=== PATIENT | female | born 1970 | race Caucasian/White ===

== ENCOUNTER 2017-04-15 06:38 | Inpatient (IN) | payer BC ==
[2017-04-15] MEDS ORDERED: ONDANSETRON 4 MG/2 ML VIAL IVP ONE (06:50)
[2017-04-15] MEDS ORDERED: Pantoprazole Inj 40 MG in Normal Saline Flush 10 ML IVP ONE (06:50)
[2017-04-15] MEDS ORDERED: NORMAL SALINE 10 ML SYRINGE FLUSH IVP PRN ×6 (06:50→12:12)
[2017-04-15] MEDS ORDERED: Sodium Chloride 0.9% 1,000 ML PRIMARY IV ONE (06:50)
--- NOTE | 2017-04-15 07:07 | PDOC ---
Abdomen/Flank HPI - General Chief Complaint: Abdomen Pain Stated Complaint: MID ABDOMINAL PAIN SINCE LAST NIGHT Date Seen by Provider: 04/15/17 Time Seen by Provider: 06:45 Source: POSITIVE: Patient Exam Limitations: POSITIVE: No limitations Nurse's Notes Reviewed & Considered: Yes - History of Present Illness Initial Comments: The patient is a 46-year-old female who presents to the emergency department with abdominal pain and cramping. She states that sometime in the middle of the night she developed intermittent episodes of upper abdominal pain and cramping area she states that this last for several seconds and occurs in a series of cramps and then resolves periodically. She has associated nausea and one episode of dry heaves. She also has generalized weakness and chills. She does have a history of previous lap band procedure in 2007 with revision in 2013. She states that her current pain does not feel similar to problems she has had with her lap band in the past. She denies any recent diarrhea or constipation. She states she did have a normal bowel movement earlier this morning. She denies urinary symptoms. She has no chest pain, cough or shortness of breath. She has had no prior abdominal surgeries other than the lap band procedures. - Patient Home Medications Home Medications: Home Medications Ethynodiol D-Ethinyl Estradiol [Zovia 1-35e] 1 each PO DAILY 10/25/11 Naproxen Sodium [Aleve] 220 mg PO PRN PRN 10/26/11 - Patient Allergies Allergies/Adverse Reactions: Allergies Allergy/AdvReac Type Severity Reaction Status Date / Time Penicillins Allergy Intermediate HIVES Verified 04/15/17 06:44 Past Medical History - heen HEENT History: Denies History Cardiovascular History: Denies History Respiratory History: Denies History Gastrointestinal History: Denies History Genitourinary History: Denies History Endocrine History: Denies History Musculoskeletal History: Denies History Neurological History: Denies History Blood Disorders: Denies History Psychiatric History: Denies History Female Reproductive History: Denies History LMP: currently Obstetrical History: Denies History In Past Year Been Physically Harmed or Verbally Threatened: No History of MDRO: No Tobacco Use: Never Smoker Alcohol Use: Occasionally Substance Use Type: None Previous Surgical History: Yes Type / Date of Surgery: lap band, R thumb, R wrist Anesthesia Reactions: No Malignant Hyperthermia: No Significant Family History: No pertinent family hx Past Medical History Reviewed: Reviewed - No Changes ROS - Limitations ROS Limitations: No Limitations Constitution: REPORTS: Chills Cardiovascular: REPORTS: Denies Cardiac Symptoms Respiratory: REPORTS: Denies Resp Symptoms Neurological: REPORTS: Denies Neuro Symptoms Gastrointestinal: REPORTS: Abdominal Pain, Nausea. DENIES: Diarrhea, Black Stools, Bloody Stools, Constipation Endocrine: REPORTS: Fatigue Musculoskeletal: REPORTS: Denies MS Symptoms Genitourinary: REPORTS: Denies Symptoms, Other (Currently on her menses) Eyes: REPORTS: Denies Symptoms ENT: REPORTS: Denies Symptoms Skin: DENIES: Rash Abdominal/Flank Pain PE - General Appearance General Appearance: POSITIVE: Alert, Cooperative, No Acute Distress - HEENT HEENT: POSITIVE: Head Inspection Nml, Eyes Inspection Nml, Ears Inspection Nml, Pharynx Inspect. Nml - Neck Neck: POSITIVE: Normal Inspection. NEGATIVE: Lymphadenopathy - Respiratory Respiratory: POSITIVE: No Respiratory Distress, Breath Sounds Normal - Cardiovascular Cardiovascular: POSITIVE: Regular Rate and Rhythm, Heart Sounds Normal Peripheral Pulses: Dorsalis-pedis (R): 2+, Dorsalis-pedis (L): 2+ - Abdomen Abdomen: Soft: (All Quadrants), No Guarding: (All Quadrants), No Rebound: (All Quadrants), No Distention: (All Quadrants) Additional Abdominal Details: She does have tenderness in the epigastric region without guarding or rebound tenderness, no palpable mass - Back Back: POSITIVE: Normal Inspection. NEGATIVE: CVA Tenderness (R), CVA Tenderness (L) - Skin Skin: POSITIVE: Intact, No Rash - Extremities Extremity: Normal ROM: (All Extremities), Normal Inspection: (All Extremities) - Neurological Neurological: POSITIVE: Oriented X3, lamp wirer Normal As Tested, Motor Normal, Sensation Normal Abdomen Progress - Results Reviewed by me Xrays/CTs/US Reviewed by me: Yes Discussed with Radiologist: Yes Radiology Findings: CT scan of the abdomen and pelvis with IV contrast reveals an appendix that has a mildly enlarged tip concerning for a distal or early appendicitis, she also has some inflammatory change to the distal ileum per radiologist. Lab Results Reviewed: Yes Lab Results:: Laboratory Results 04/15/17 04/15/17 Range/Units 07:07 08:20 WBC 11.79 H (4.8-10.8) 10^3/uL RBC 4.85 (4.20-5.40) 10^6/uL Hgb 14.7 (12.0-16.0) g/dL Hct 43.4 (37.0-47.0) % MCV 89.5 (81-99) FL MCH 30.3 (27-31) PG MCHC 33.9 (33-37) g/dL RDW Std Deviation 42.4 (39-50) fL RDW Coeff of Bernadette 13.1 (11.5-14.5) % Plt Count 300 (140-350) 10*3/uL MPV 8.5 (7.4-12.2) FL Immature Gran % (Auto) 0.1 (0-5) % Neut % (Auto) 86.1 H (50-80) % Lymph % (Auto) 9.2 L (10-50) % [place] % (Auto) 3.5 L (5-15) % Eos % (Auto) 0.8 (0-8) % Baso % (Auto) 0.3 (0-1) % Immature Gran # (Auto) 0.01 10*3/UL Neut # (Auto) 10.16 10*3/UL Lymph # (Auto) 1.08 10*3/uL [place] # (Auto) 0.41 (0.3-0.8) 10*3/UL Eos # (Auto) 0.10 10*3/UL Baso # (Auto) 0.03 10*3/UL WBC Morphology Comment Normal morphology (NORM) Plt Morphology Comment Normal morphology (NORM) RBC Morph Comment Normal morphology (NORM) Sodium 139 (135-145) meq/L Potassium 3.2 L (3.8-5.2) meq/L Chloride 106 (98-112) meq/L Carbon Dioxide 20 L (23-33) meq/L Anion Gap 13 (5-20) BUN 10 (7-22) mg/dL Creatinine 0.8 (0.50-1.20) mg/dL Estimated GFR > 60 (>60 ml/min/1.73m(2)) BUN/Creatinine Ratio 12.50 (6-20) Glucose 125 H (78-110) mg/dL Calculated Osmolality 287.0 (267-292) mOsm/kg Calcium 8.9 (8.7-10.7) mg/dL Total Bilirubin 1.4 H (0.3-1.2) mg/dL AST 23 (8-39) IU/L ALT 54 H (9-52) IU/L Alkaline Phosphatase 64 (38-126) IU/L C-Reactive Protein 1.0 H (0.0-0.9) mg/dL Total Protein 7.2 (6.1-8.0) g/dL Albumin 4.1 (3.5-4.8) g/dL Globulin 3.1 (2.50-4.10) g/dL Albumin/Globulin Ratio 1.30 (1.3-2.0) mg/g Amylase 100 (30-110) U/L Lipase 61 (23-300) IU/L Serum HCG, Qual Negative Ur Collection Type Clean catch urine Urine Color Yellow Urine Clarity Clear (CLEAR) Urine pH 5.5 (5.0-8.5) Ur Specific [place] <=1.005 (1.005-1.030) Urine Protein Negative (NEG) mg/dl Urine Glucose (UA) Negative (NEG) mg/dL Urine Ketones 15 (NEG) Urine Occult Blood Moderate H (NEG) Urine Nitrate Negative (NEG) Urine Bilirubin Negative (NEG) Urine Urobilinogen 0.2 (0.2) EU/dL Ur Leukocyte Esterase Negative (NEG) Urine RBC 2-4 (NONE) /hpf Urine WBC 0-2 (NONE) Ur Squamous Epith Cells Rare (NONE) Ur Renal Epithelial Cell None (NONE) Urine Crystals None Urine Bacteria None (NONE) Urine Casts None (NONE) Urine Mucus None (NONE) Urine Trichomonas None (NONE) Urine Yeast None (NONE) Ur Culture Indicated? Culture not set - Patient's Progress MDM / ED Course: An IV was established and she received a 1 L bolus of normal saline as well as Zofran 4 mg IV and Protonix 40 mg IV. Her abdominal cramping seemed to subside significantly. Her white blood cell count was mildly elevated and a CT of her abdomen and pelvis was ordered. This showed the tip of the appendix to be enlarged concerning for an early or distal appendicitis, she also had inflammatory changes to the distal ileum. These findings were discussed with the patient. Repeat abdominal exam revealed tenderness to be now more located in the right mid abdomen right over the area where her appendix is at. Because of her CT findings and elevated white count a surgical consultation was obtained per Dr. Gay. He evaluated the patient in the emergency room and is making arrangements to take the patient to the OR for appendectomy. - Consult Counseled: POSITIVE: Patient, Family, RE: Lab Results, RE: Radiology Results, RE : DX, RE: Need for F/U Patient Care Time - Estimated PCT Patient Care Time (In Minutes): 35 Vital Signs - Recent Vital Signs Vital Signs: Vital Signs (Last 8 hours) Temp Pulse Resp BP Pulse Ox 04/15/17 06:41 97.0 F 77 18 121/75 99 - VS Reviewed Vital Signs Reviewed: Yes Discharge Clinical Impression: Appendicitis Discharge Disposition: Transferred to OR Condition: Stable
[2017-04-15 07:10] LABS: BASOPHILS # (AUTO) 0.03 10*3/UL; BASOPHILS % (AUTO) 0.3 % (0-1); EOSINOPHILS % (AUTO) 0.8 % (0-8); HEMATOCRIT 43.4 % (37.0-47.0); HEMOGLOBIN 14.7 g/dL (12.0-16.0); LYMPHOCYTES # (AUTO) 1.08 10*3/uL; MEAN CORPUSCULAR HEMOGLOBIN 30.3 PG (27-31); MEAN CORPUSCULAR HGB CONC 33.9 g/dL (33-37); MEAN CORPUSCULAR VOLUME 89.5 FL (81-99); MEAN PLATELET VOLUME 8.5 FL (7.4-12.2); MONOCYTES # (AUTO) 0.41 10*3/UL (0.3-0.8); MONOCYTES % (AUTO) 3.5 % (5-15); NEUTROPHILS # (AUTO) 10.16 10*3/UL; NEUTROPHILS % (AUTO) 86.1 % (50-80); RED BLOOD COUNT 4.85 10^6/uL (4.20-5.40)
[2017-04-15 07:12] LABS: PLATELET MORPHOLOGY COMMENT NORMAL MORPHOLOGY (NORM); RBC MORPHOLOGY COMMENT NORMAL MORPHOLOGY (NORM); WBC MORPHOLOGY COMMENT NORMAL MORPHOLOGY (NORM)
[2017-04-15 07:30] LABS: BLOOD UREA NITROGEN 10 mg/dL (7-22); CALCIUM 8.9 mg/dL (8.7-10.7); EST GLOMERULAR FILTRATION > 60 (>60 ml/min/1.73m(2)); LIPASE 61 IU/L (23-300); SERUM ALBUMIN 4.1 g/dL (3.5-4.8)
[2017-04-15 08:30] LABS: BILIRUBIN,URINE NEGATIVE (NEG); CLARITY,URINE CLEAR (CLEAR); COLOR,URINE YELLOW; GLUCOSE, URINE (UA) NEGATIVE (NEG); NITRATE,URINE NEGATIVE (NEG); OCCULT BLOOD,URINE MODERATE (NEG); PH,URINE 5.5 (5.0-8.5); PROTEIN,URINE NEGATIVE (NEG); UROBILINOGEN,URINE 0.2 EU/dL (0.2)
[2017-04-15 08:35] LABS: SQUAMOUS EPITHELIAL CELL,UR RARE; URINE SAMPLE TYPE CLEAN CATCH URINE; WBC,URINE 0-2
--- NOTE | 2017-04-15 08:48 | DI ---
CT ABD W/CN AND PELVIS W/CN,04/15/2017 7:33 AM: Clinical History: Abdominal pain and elevated white blood cell count. Previous Exam: None at this facility. Findings: Multiple helically acquired CT images are obtained through the abdomen and pelvis following the intra venous administration of Isovue 300, and demonstrates clear lung bases. Mild diffuse fatty infiltration of the liver is noted. The gallbladder, spleen, adrenals, kidneys and pancreas are unremarkable. There is a LAP-BAND involving the gastric fundus. The tip of the appendix is slightly prominent (9 mm). There are inflammatory changes involving the ma jority of the right lower quadrant with thickened loops of terminal ileum and some free fluid in the deep pelvis. Urinary bladder is unremarkable. There are bilateral L5 pars defects with grade 1 anterolisthesis of L5 on S1 with sclerotic changes o f the endplates. The lung bases are clear. Impression: 1. Inflammatory changes and thickening of the distal ileum involving approximately 30 cm of small bow el most consistent with inflammatory bowel disease. 2. Prominence of the tip of the appendix (9 mm) without any inflammatory changes.
[2017-04-15] MEDS ORDERED: ERTAPENEM 1 GM VIAL ONE (09:05)
[2017-04-15] MEDS ORDERED: Sodium Chloride 0.9% 100 ML IV ONE (09:05)
[2017-04-15] MEDS ORDERED: Ertapenem Inj 1 GM in Sodium Chloride 0.9% 100 ML IV ONE (09:09)
--- NOTE | 2017-04-15 09:10 | PDOC ---
History and Physical - History of Present Illness Date and Time of Service: 03/15/2017 at 9 AM Chief Complaint: Abdominal pain History of Present Illness: This is a 46-year-old female who's developed crampy abdominal pain. The pain is a midepigastric region and has shifted the right lower quadrant. She denies fever or chills. She denies any diarrhea. She denies hematochezia hematemesis or melena. Patient did have a lap band before. She's had complications that she states that this is nothing like that. Patient's white count is slightly elevated above 11,000. She had a CT scan of the abdomen which shows a 9 mm thickened distal appendix. She also has some inflammatory changes of the terminal ileum. The radiologist is highly concerned that this may be a carcinoid. Past Medical History Surgical History: Lap banding Tobacco Use: Never Smoker Substance Use Type: None Medication / Allergies Home Medications: Home Medications Medication Instructions Recorded Confirmed Type Ethynodiol D-Ethinyl Estradiol 1 each PO DAILY 10/25/11 04/15/17 History [Zovia 1-35e] Naproxen Sodium [Aleve] 220 mg PO PRN PRN 10/26/11 04/15/17 History Allergies/Adverse Reactions: Allergies Allergy/AdvReac Type Severity Reaction Status Date / Time Penicillins Allergy Intermediate HIVES Verified 04/15/17 06:44 Review of Systems - Review of Systems All Systems: Reviewed & No Additional Complaints Except as Stated Exam - Vitals Vital Signs: Vital Signs Temperature 97.0 F Temperature Source Temporal Artery Scan Pulse Rate [Pulse Oximeter 77 Right] Respiratory Rate 18 Blood Pressure [Right Arm] 121/75 Pulse Ox 99 Oxygen Delivery Method Room Air Height 5 ft 2 in Weight 90.718 kg - General General Appearance: POSITIVE: No Acute Distress, Cooperative - Eye Eye Exam: POSITIVE: PERRL, EOMI - Neck Neck Exam: POSITIVE: Normal Inspection, Full ROM - Respiratory Respiratory Exam: POSITIVE: Clear to Auscultation - Bilaterally, Breathing Non Labored - Cardiovascular Cardiovascular Exam: POSITIVE: RRR, No Murmur - GI/Abdominal GI/Abdominal Exam: POSITIVE: Non Distended, Soft, No Masses, Positive for RUQ Pain, No Hepatomegaly, No Splenomegaly - Rectal Rectal Exam: POSITIVE: Deferred Results - Labs CBC and BMP: 04/15/17 07:07 04/15/17 07:07 Labs - Last 24 Hours: Laboratory Results 04/15/17 04/15/17 Range/Units 07:07 08:20 WBC 11.79 H (4.8-10.8) 10^3/uL RBC 4.85 (4.20-5.40) 10^6/uL Hgb 14.7 (12.0-16.0) g/dL Hct 43.4 (37.0-47.0) % MCV 89.5 (81-99) FL MCH 30.3 (27-31) PG MCHC 33.9 (33-37) g/dL RDW Std Deviation 42.4 (39-50) fL RDW Coeff of Bernadette 13.1 (11.5-14.5) % Plt Count 300 (140-350) 10*3/uL MPV 8.5 (7.4-12.2) FL Immature Gran % (Auto) 0.1 (0-5) % Neut % (Auto) 86.1 H (50-80) % Lymph % (Auto) 9.2 L (10-50) % [place] % (Auto) 3.5 L (5-15) % Eos % (Auto) 0.8 (0-8) % Baso % (Auto) 0.3 (0-1) % Immature Gran # (Auto) 0.01 10*3/UL Neut # (Auto) 10.16 10*3/UL Lymph # (Auto) 1.08 10*3/uL [place] # (Auto) 0.41 (0.3-0.8) 10*3/UL Eos # (Auto) 0.10 10*3/UL Baso # (Auto) 0.03 10*3/UL WBC Morphology Comment Normal morphology (NORM) Plt Morphology Comment Normal morphology (NORM) RBC Morph Comment Normal morphology (NORM) Sodium 139 (135-145) meq/L Potassium 3.2 L (3.8-5.2) meq/L Chloride 106 (98-112) meq/L Carbon Dioxide 20 L (23-33) meq/L Anion Gap 13 (5-20) BUN 10 (7-22) mg/dL Creatinine 0.8 (0.50-1.20) mg/dL Estimated GFR > 60 (>60 ml/min/1.73m(2)) BUN/Creatinine Ratio 12.50 (6-20) Glucose 125 H (78-110) mg/dL Calculated Osmolality 287.0 (267-292) mOsm/kg Calcium 8.9 (8.7-10.7) mg/dL Total Bilirubin 1.4 H (0.3-1.2) mg/dL AST 23 (8-39) IU/L ALT 54 H (9-52) IU/L Alkaline Phosphatase 64 (38-126) IU/L C-Reactive Protein 1.0 H (0.0-0.9) mg/dL Total Protein 7.2 (6.1-8.0) g/dL Albumin 4.1 (3.5-4.8) g/dL Globulin 3.1 (2.50-4.10) g/dL Albumin/Globulin Ratio 1.30 (1.3-2.0) mg/g Amylase 100 (30-110) U/L Lipase 61 (23-300) IU/L Serum HCG, Qual Negative Ur Collection Type Clean catch urine Urine Color Yellow Urine Clarity Clear (CLEAR) Urine pH 5.5 (5.0-8.5) Ur Specific [place] <=1.005 (1.005-1.030) Urine Protein Negative (NEG) mg/dl Urine Glucose (UA) Negative (NEG) mg/dL Urine Ketones 15 (NEG) Urine Occult Blood Moderate H (NEG) Urine Nitrate Negative (NEG) Urine Bilirubin Negative (NEG) Urine Urobilinogen 0.2 (0.2) EU/dL Ur Leukocyte Esterase Negative (NEG) Urine RBC 2-4 (NONE) /hpf Urine WBC 0-2 (NONE) Ur Squamous Epith Cells Rare (NONE) Ur Renal Epithelial Cell None (NONE) Urine Crystals None Urine Bacteria None (NONE) Urine Casts None (NONE) Urine Mucus None (NONE) Urine Trichomonas None (NONE) Urine Yeast None (NONE) Ur Culture Indicated? Culture not set Assessment and Plan - Patient Problems (1) Appendicitis Current Visit: Yes Status: Acute - Assessment / Plan Additional Assessment/Plan Details: At the present time I cannot exclude appendicitis as a diagnosis. Patient may have just terminal ileitis. But since appendix is abnormal filling needs to come out. I also discussed the nonoperative management. The patient like her appendix removed. I discussed if she laparoscopic and open she would like laparoscopic.
[2017-04-15] MEDS ORDERED: Lactated Ringers 1,000 ML PRIMARY IV SCH (09:15)
[2017-04-15] MEDS ORDERED: ROCURONIUM 10 MG/1 ML - 5 ML VIAL IVP ONE (09:15)
[2017-04-15] MEDS ORDERED: BUPivacaine Inj 0.25% PF - 10ml vial ONE (09:50)
[2017-04-15] MEDS ORDERED: Sodium Chloride 0.9% vial 10 ML ONE (09:52)
[2017-04-15] MEDS ORDERED: LIDOCAINE MPF 2% - 5 ML (20 MG/1 ML) ONE (10:05)
[2017-04-15] MEDS ORDERED: KETOROLAC 30 MG/1 ML VIAL ONE (10:42)
[2017-04-15] MEDS ORDERED: SUGAMMADEX SODIUM 200 MG/2 ML VIAL IV ONE (10:42)
[2017-04-15] MEDS ORDERED: HYDROmorphone 2 MG/1 ML ONE (10:51)
[2017-04-15] MEDS ORDERED: Ondansetron ODT Tab 4 MG TAB PO PRN ×2 (11:13→12:12)
[2017-04-15] MEDS ORDERED: HYDROcodone-APAP 7.5 MG-325 MG TABLET PO PRN ×2 (11:13→12:12)
[2017-04-15] MEDS ORDERED: MORPHINE SULFATE 2 MG/1 ML IVP PRN ×2 (11:13→12:12)
[2017-04-15] MEDS ORDERED: KETOROLAC 15 MG/1 ML VIAL IVP PRN (11:13)
[2017-04-15] MEDS ORDERED: NALOXONE 0.4 MG/1 ML VIAL IVP PRN ×2 (11:13→12:12)
--- NOTE | 2017-04-15 11:13 | GEN.OPNOTE ---
Operative Note Surgery Date: 04/15/17 Preoperative Diagnosis: Right lower quadrant pain with abnormal appendix Postoperative Diagnosis: Right lower quadrant pain with abnormal appendix on CT scan. Bloody ascitic fluid Procedure: Laparoscopic appendectomy [employer] Report Developer: Jagdish Gay MD Anesthesia Provider: Ez Cabezas CRNA Anesthesia Type: General Estimated Blood Loss (mL): 10 Pathology: 1 g of Invanz. Lactated Ringer's please anesthesia notes in EMR Indications: Patient is having abdominal pain is shifted to the right lower quadrant. CT scan shows that she has a abnormal appendix. The tip of the appendix is dilated up to 9 mm and is abnormal. She has some inflammatory changes into the ileum. Findings: Patient has a thickened tip of the appendix. She had a large amount of bloody ascitic fluid in the pelvis and above the liver Complications: None Operative Summary: Patient is brought in operative room. Placed 2 by position. General anesthesia performed. After adequate anesthesia, timeout was performed per protocols after prep and drape in the patient. I infiltrated quarter percent Marcaine at all trocar sites. Made a small incision below the umbilicus. Resume all inserted. Pneumoperitoneum obtained. I then using the Visiport place a 10 mm trocar and. Initial looking at the abdominal cavity showed a large amount ascitic fluid. Then under direct laparoscopic visualization put a 5 mm trocar above the pubic symphysis. I then put a 5 mm Lady and. We identified both the right and left ovary. There appeared to be no true abnormal pathology seen. No hemorrhagic cysts identified. I this looked at the cecum there is some little inflammatory changes of the terminal ileum but this appeared to be more secondary to was going on abdominal cavity not the cause. There is no fat wrapping that I can note. The cecum was identified along with appendix. The tip of the appendix was dilated and from an different from the remainder the appendix. I then placed a 10 mm trocar in the left lower quadrant. Initially the trocar was guided into high to be effective therefore repositioned into the abdominal cavity. At that point we use the gyrus to take down the mesoappendix. I put 2 Endoloops across the stump of the appendix and one Endoloop more proximal and divided the appendix. The appendix was placed into an Endobag. I then aspirated some of the fluid out for cultures. I then irrigated until clear. The liver stomach gallbladder all appear to be normal. The good look at the tube for the balloon gastroplasty appeared be in good position. Cecum Ayo transverse colon and the part of the sigmoid colon visualized all appear to be normal. Patient did have a fibroid on the uterus. I then remove the appendix from the trochars in the left lower quadrant. I then deinsufflated the abdomen removed all trochars. These cause all trochars with the muscle bellies I did not close them. Skin was reapproximated using 4-0 Vicryl simple subcuticular stitches. Patient transferred recovery room in stable condition. Patient Problems - Patient Problem List (1) Appendicitis Current Visit: Yes Status: Acute
[2017-04-15] MEDS ORDERED: LIDOCAINE W/ SODIUM BICARB 0.5 ML SYR ONE (14:24)
[2017-04-15] MEDS ORDERED: KETOROLAC 15 MG/1 ML VIAL ONE (19:32)
[2017-04-15] MEDS: KETOROLAC 15 MG/1 ML VIAL IVP PRN (19:33)
[2017-04-15] MEDS ORDERED: HYDROcodone-APAP 7.5 MG-325 MG TABLET PO ONE (22:53)
[2017-04-16] MEDS ORDERED: KETOROLAC 15 MG/1 ML VIAL ONE ×2 (03:59→09:22)
[2017-04-16 04:02] VITALS: TEMP 97.9
[2017-04-16] MEDS: KETOROLAC 15 MG/1 ML VIAL IVP PRN ×2 (04:17→09:25)
[2017-04-16 05:18] LABS: BASOPHILS # (AUTO) 0.01 10*3/UL; BASOPHILS % (AUTO) 0.1 % (0-1); EOSINOPHILS # (AUTO) 0.26 10*3/UL; EOSINOPHILS % (AUTO) 3.2 % (0-8); HEMATOCRIT 35.4 % (37.0-47.0); HEMOGLOBIN 11.5 g/dL (12.0-16.0); LYMPHOCYTES # (AUTO) 2.69 10*3/uL; MEAN CORPUSCULAR HGB CONC 32.5 g/dL (33-37); MEAN CORPUSCULAR VOLUME 92.4 FL (81-99); MEAN PLATELET VOLUME 9.2 FL (7.4-12.2); MONOCYTES # (AUTO) 0.64 10*3/UL (0.3-0.8); MONOCYTES % (AUTO) 7.8 % (5-15); NEUTROPHILS # (AUTO) 4.58 10*3/UL; RED BLOOD COUNT 3.83 10^6/uL (4.20-5.40)
[2017-04-16 05:24] LABS: PLATELET MORPHOLOGY COMMENT NORMAL MORPHOLOGY (NORM); RBC MORPHOLOGY COMMENT NORMAL MORPHOLOGY (NORM); WBC MORPHOLOGY COMMENT NORMAL MORPHOLOGY (NORM)
[2017-04-16 05:53] LABS: BLOOD UREA NITROGEN 6 mg/dL (7-22); BUN/CREATININE RATIO 8.57 (6-20); CALCIUM 7.9 mg/dL (8.7-10.7); EST GLOMERULAR FILTRATION > 60 (>60 ml/min/1.73m(2))
[2017-04-16 06:48] VITALS: RESP 17
--- NOTE | 2017-04-16 08:44 | DCSUMMARY ---
Discharge Summary Admit Date: 04/15/17 Discharge Date: 04/16/17 Admitting Diagnosis: acute appendicitis Discharge Diagnosis: Acute appendicitis Primary Surgery and Date: Appendectomy Hospital Course: 46-year-old female who comes in for abdominal pain. She is found to have an abnormal appendix on CT scan. Therefore she 1 left scopic appendectomy. She had a firm dilated tip of the appendix. There is also a lot of blood in the abdominal cavity. Is felt that this was retroflexed grade flow from her menses. Cultures see show Gram stain was negative. First postoperative day patient is feeling better. The pain that brought her to the hospital had been relieved. Exam - Vitals Vital Signs: Vital Signs Temperature 97.9 F Temperature Source Temporal Artery Scan Pulse Rate [Pulse Oximeter 63 Right] Pulse Rate 53 Respiratory Rate 17 Blood Pressure [Left Arm] 115/74 Blood Pressure [Right Arm] 131/67 Blood Pressure 117/68 Pulse Ox 96 Oxygen Flow Rate 2 Oxygen Delivery Method Room Air Height 5 ft 2 in Weight 98.248 kg - General General Appearance: POSITIVE: No Acute Distress, Cooperative - Head Head Exam: POSITIVE: Normal Inspection, Normocephalic - Eye Eye Exam: POSITIVE: Normal Appearance, PERRL, EOMI, No Scleral Icterus - ENT ENT Exam: POSITIVE: Normal Exam, Normal External Ear Exam, Normal Oropharynx, TM 's Normal Bilaterally, Mucous Membranes Moist - Neck Neck Exam: POSITIVE: Normal Inspection, Full ROM, No Tenderness, No Lymphadenopathy, No Thyromegaly, JVP is not Raised - Respiratory Respiratory Exam: POSITIVE: Clear to Auscultation - Bilaterally, Breathing Non Labored, Normal To Percussion, Normal to Percussion and Palpation - Cardiovascular Cardiovascular Exam: POSITIVE: RRR, No Murmur, No Clicks, No Gallops, No Rubs - GI/Abdominal GI/Abdominal Exam: POSITIVE: Normal Bowel Sounds, Non Tender, Non Distended, Soft, No Masses, No Hepatomegaly, No Splenomegaly, No Organomegaly - Rectal Rectal Exam: POSITIVE: Deferred - External Exam: POSITIVE: Deferred Exam: POSITIVE: Deferred - Extremities Extremities Exam: POSITIVE: Normal Inspection, Full ROM, Normal Capillary Refill , No Clubbing Present, No Edema Present, No Cyanosis Present, Negative Marcus's sign, Dosalis Pedis Pulses - Stong & Regular - Back Back Exam: POSITIVE: Normal Inspection, Full ROM, No CVA Tenderness - Neurological Neurological Exam: POSITIVE: Alert, Oriented x 3, Reflexes Normal, Normal Gait, CN II-XII Intact, No Facial Droop, Speech Intact / Clear, Moves All Extremities Equally, No Fasciculations, No Clonus - Psychiatric Psychiatric Exam: POSITIVE: Normal Affect, Normal Mood - Integumentary Integumentary Exam: POSITIVE: Normal Color, Warm, Dry, Intact Patient Problems - Patient Problem List (1) Appendicitis Current Visit: Yes Status: Acute Support Text: At this point the patient can be discharged home. She'll follow up in 1 week's time.
--- NOTE | 2017-04-16 08:44 | CRNA.PROGR ---
Anesthesia Note Anesthesia Progress Note: Pt is sitting up in bed and has been up ambulating and to the restroom on her own. States her pain is well under control. She tolerating a regular diet and denies any residual problems of GETA. Current VSS. Vital Signs (Last 8 hours) Temp Pulse Resp BP Pulse Ox 04/16/17 06:46 97.9 F 63 17 115/74 96 04/16/17 04:00 97.9 F 73 18 109/56 94
[2017-04-16] MEDS ORDERED: [UNRECOGNIZED DRUG - OTHER] PO SCH (09:00)
== END 2017-04-16 09:38 | disposition home or self-care (01) | DRG 342 ==
LOC: ER 06:38 → SDSC 09:04 → OPS 09:13 → MED/SURG 11:15 → UNDOADMIN 11:15 → SDSC 11:15 → MED/SURG 11:15 → UNDOADMIN 12:12
PROVIDERS: ADMIT Surgery; ATTEND Surgery
PROC: 0DTJ4ZZ Resection of Appendix, Percutaneous Endoscopic Approach (ICD-10-PCS; principal; 2017-04-15 10:00)
DX: K35.80 Unspecified acute appendicitis (principal); Q43.8 Other specified congenital malformations of intestine; R18.8 Other ascites; R10.31 Right lower quadrant pain
CPT/HCPCS: 36415; 74177; 80048; 80053; 81001; 81003; 82150; 83690; 84703; 85025; 86140; 87070; 87205; 94150; 96361; 96374; 96375; 99285; A4216; J1170; J1335; J1885; J2001; J2405; J3490; J7030; J7050